=== PATIENT | male | born 1955 | race American Indian/Alaskan Native ===

== ENCOUNTER 2017-04-11 09:25 | Emergency (ER) | payer MEDICAID ==
--- NOTE | 2017-04-11 09:41 | Emergency Department Report ---
ED Medical Clearance HPI - General Chief complaint: Medical Clearance Stated complaint: HBP/DIABETIC Time Seen by Provider: 04/11/17 09:37 Source: patient Mode of arrival: Ambulatory Limitations: No Limitations - History of Present Illness -: Gradual Alledged Intoxication: No Compliant with Home Medications: No Traumatic Symptoms: denies traumatic injury Associated Symptoms: denies other symptoms, other (out of meds). denies: chest pain, shortness of breath, palpitations, diaphoresis, confusion, cough, fever/ chills, headaches, anorexia, malaise, nausea/vomiting, rash, seizure, syncope, weakness Treatments Prior to Arrival: none Home medications: Home Medications Medication Instructions Recorded Confirmed Last Taken Doxazosin 2 mg PO DAILY 06/23/15 02/29/16 Unknown Previous Rx's Medication Instructions Recorded Last Taken Type metFORMIN [Glucophage] 500 mg PO QDAY #31 tab 02/29/16 Unknown Rx traMADol [Ultram 50 MG tab] 50 mg PO Q6HR PRN #15 tablet 02/29/16 Unknown Rx Doxazosin [Cardura] 2 mg PO QDAY #30 tablet 04/11/17 Unknown Rx metFORMIN [Glucophage] 500 mg PO QDAY #30 tab 04/11/17 Unknown Rx Allergies/Adverse reactions: Allergies Allergy/AdvReac Type Severity Reaction Status Date / Time No Known Allergies Allergy Verified 02/29/16 11:11 ED Review of Systems ROS: Stated complaint: HBP/DIABETIC Other details as noted in HPI Comment: All other systems reviewed and negative Constitutional: no symptoms reported, see HPI Eyes: as per HPI ENT: as per HPI. denies: ear pain, throat pain Respiratory: no symptoms reported, see HPI. denies: cough, orthopnea, shortness of breath, SOB with exertion, SOB at rest, stridor, wheezing Cardiovascular: as per HPI. denies: chest pain, palpitations, dyspnea on exertion, orthopnea, edema, syncope, paroxysmal nocturnal dyspnea Endocrine: no symptoms reported, see HPI. denies: excessive sweating, flushing , intolerance to cold, intolerance to heat Gastrointestinal: as per HPI. denies: abdominal pain, nausea, vomiting Genitourinary: as per HPI. denies: urgency, dysuria Musculoskeletal: as per HPI. denies: back pain Skin: as per HPI. denies: rash, lesions Neurological: as per HPI. denies: headache, weakness, numbness, paresthesias, confusion, abnormal gait, vertigo Psychiatric: as per HPI, other (wie "on his case to get his meds." she checks his bs at home). denies: anxiety, depression Hematological/Lymphatic: as per HPI. denies: easy bleeding ED Past Medical Hx - Past Medical History Previous Medical History?: Yes Hx Hypertension: Yes Hx CVA: No Hx Heart Attack/AMI: No Hx Congestive Heart Failure: No Hx Diabetes: Yes Hx Deep Vein Thrombosis: No Hx Pulmonary Embolism: No Hx GERD: No Hx Liver Disease: No Hx Renal Disease: No Hx of Cancer: No Hx Sickle Cell Disease: No Hx Arthritis: No Hx Headaches / Migraines: No Hx Seizures: No Hx Kidney Stones: No Hx Psychiatric Treatment: No Hx Asthma: No (denies to provider) Hx COPD: No Hx Tuberculosis: No Hx Dementia: No Hx HIV: No - Surgical History Past Surgical History?: Yes Additional Surgical History: left knee surgery. cataract - Family History Family history: no significant - Social History Smoking Status: Current Every Day Smoker Substance Use Type: Alcohol, Prescribed - Medications Home Medications: Home Medications Medication Instructions Recorded Confirmed Last Taken Type Doxazosin 2 mg PO DAILY 06/23/15 02/29/16 Unknown History metFORMIN [Glucophage] 500 mg PO QDAY #31 tab 02/29/16 Unknown Rx traMADol [Ultram 50 MG tab] 50 mg PO Q6HR PRN #15 tablet 02/29/16 Unknown Rx Doxazosin [Cardura] 2 mg PO QDAY #30 tablet 04/11/17 Unknown Rx metFORMIN [Glucophage] 500 mg PO QDAY #30 tab 04/11/17 Unknown Rx ED Physical Exam - General Limitations: No Limitations General appearance: alert, in no apparent distress - Head Head exam: Present: atraumatic - Eye Eye exam: Present: normal appearance - ENT ENT exam: Present: normal exam, mucous membranes moist - Neck Neck exam: Present: normal inspection. Absent: tenderness, meningismus - Respiratory Respiratory exam: Present: normal lung sounds bilaterally. Absent: respiratory distress, wheezes, rales, rhonchi, stridor - Cardiovascular Cardiovascular Exam: Present: regular rate. Absent: normal rhythm, bradycardia , tachycardia, irregular rhythm - GI/Abdominal GI/Abdominal exam: Present: soft. Absent: distended, tenderness, guarding, rebound, rigid, normal bowel sounds, diminished bowel sounds - Rectal Rectal exam: Present: deferred - Back Exam Back exam: Present: normal inspection, full ROM. Absent: tenderness, CVA tenderness (R), CVA tenderness (L) - Neurological Exam Neurological exam: Present: alert, altered, oriented X3, CN II-XII intact, normal gait, reflexes normal. Absent: abnormal gait, motor sensory deficit - Psychiatric Psychiatric exam: Present: normal affect, normal mood, depressed. Absent: agitated - Skin Skin exam: Present: warm, dry, intact, normal color. Absent: rash ED Course Vital Signs 04/11/17 09:28 Temperature 97.8 F Pulse Rate 86 Respiratory 18 Rate Blood Pressure 154/100 O2 Sat by Pulse 99 Oximetry - Reevaluation(s) Reevaluation #1: 04/11/17 09:48 to er for med refill bp med and metformin no co see MDM section bp slightly elevated- ac neuro intact ambulatory and in no distress no cp or sob Reevaluation #2: 04/11/17 09:53 manual bp 143/80 ED Medical Decision Making - Medical Decision Making chart reviewed cr n 1 y ago off meds has pcp but forgets his name. going there to make appnt when he leaves here. no cp no sob. no neuro co. bs 135 ED Disposition Clinical Impression: Medication refill, Hypertension, Diabetes Disposition: DC-01 TO HOME OR SELFCARE Is pt being admited?: No Does the pt Need Aspirin: No Condition: Stable Instructions: How to Check Your Blood Sugar (ED), Diabetes Mellitus Type 2 in Adults (ED), Hypertension (ED) Additional Instructions: take your meds as RX see pcp for follow up visit I've given you another name today in the event you need it low salt diet diabetic diet follow your blood sugars Prescriptions: metFORMIN [Glucophage] 500 mg PO QDAY #30 tab Referrals: CALEB STUBBS MD, PHD [Staff Physician] - 3-5 Days Time of Disposition: 09:53
[2017-04-11 09:55] VITALS: BP 144/80
== END 2017-04-11 10:00 | disposition home or self-care (01) ==
LOC: ED 09:25
DX: Z76.0 Encounter for issue of repeat prescription (principal); I10 Essential (primary) hypertension; E11.9 Type 2 diabetes mellitus without complications
CPT/HCPCS: 82962; 99282

== ENCOUNTER 2017-10-05 07:44 | Emergency (ER) | payer MEDICAID ==
[2017-10-05 08:51] LABS: Basophils % (Auto) 0.5 % (0.0-1.8); Eosinophils % (Auto) 3.6 % (0.0-4.3); Hematocrit 36.1 % (35.5-45.6); Hemoglobin 12.1 gm/dl (11.8-15.2); Mean Corpuscular HGB Conc 34 % (32-34); Mean Corpuscular Hemoglobin 31 pg (28-32); Mean Corpuscular Volume 93 fl (84-94); Platelet Count 245 K/mm3 (140-440); Red Blood Count 3.86 M/mm3 (3.65-5.03); Red Cell Distribution Width 14.3 % (13.2-15.2); White Blood Count 7.6 K/mm3 (4.5-11.0)
[2017-10-05 09:03] LABS: Anion Gap 19 mmol/L; BUN/Creatinine Ratio 21; Blood Urea Nitrogen 17 mg/dL (9-20); Calcium 8.7 mg/dL (8.4-10.2); Carbon Dioxide 22 mmol/L (22-30); Chloride 99.2 mmol/L (98-107); Glucose 230 mg/dL (75-100); Sodium 136 mmol/L (137-145)
[2017-10-05 10:16] VITALS: BP 123/75
--- NOTE | 2017-10-05 12:08 | Emergency Department Report ---
ED Male HPI - General Chief complaint: Urogenital-Male Stated complaint: PRIVATE PART SWOLLEN Time Seen by Provider: 10/05/17 11:51 Source: patient Mode of arrival: Ambulatory Limitations: No Limitations - History of Present Illness Initial comments: This is a 62-year-old male who was previously unknown to this provider, patient presents to the ER with painless swelling of the foreskin since last night. He has no headache, neck pain, chest pain, abdominal pain, shortness of breath, testicular pain, and he also denies irritative/obstructive urinary symptoms. There is no trauma, and he reports no recent sexual contacts within the past month. MD Complaint: other -: Gradual, days(s) Location: penis Radiation: none Consistency: constant Improves with: other (the swelling decreases with manual pressure, and with proximally directed retraction) Worsens with: none swelling. denies: discharge, mass, rash, urinary retention, blood in urine, dysuria, fever, nausea/vomiting, incontinence - Related Data Sexually active: Yes (last month) Home Medications Medication Instructions Recorded Confirmed Last Taken Doxazosin 2 mg PO DAILY 06/23/15 02/29/16 Unknown Previous Rx's Medication Instructions Recorded Last Taken Type metFORMIN [Glucophage] 500 mg PO QDAY #31 tab 02/29/16 Unknown Rx traMADol [Ultram 50 MG tab] 50 mg PO Q6HR PRN #15 tablet 02/29/16 Unknown Rx Doxazosin [Cardura] 2 mg PO QDAY #30 tablet 04/11/17 Unknown Rx metFORMIN [Glucophage] 500 mg PO QDAY #30 tab 04/11/17 Unknown Rx Allergies Allergy/AdvReac Type Severity Reaction Status Date / Time No Known Allergies Allergy Verified 02/29/16 11:11 ED Review of Systems ROS: Stated complaint: PRIVATE PART SWOLLEN Other details as noted in HPI ED Past Medical Hx - Past Medical History Hx Hypertension: Yes Hx CVA: No Hx Heart Attack/AMI: No Hx Congestive Heart Failure: No Hx Diabetes: Yes Hx Deep Vein Thrombosis: No Hx Pulmonary Embolism: No Hx GERD: No Hx Liver Disease: No Hx Renal Disease: No Hx Sickle Cell Disease: No Hx Arthritis: No Hx Headaches / Migraines: No Hx Seizures: No Hx Kidney Stones: No Hx Psychiatric Treatment: No Hx Asthma: No (denies to provider) Hx COPD: No Hx Tuberculosis: No Hx Dementia: No Hx HIV: No - Surgical History Additional Surgical History: left knee surgery. cataract - Social History Smoking Status: Current Every Day Smoker Substance Use Type: None - Medications Home Medications: Home Medications Medication Instructions Recorded Confirmed Last Taken Type Doxazosin 2 mg PO DAILY 06/23/15 02/29/16 Unknown History metFORMIN [Glucophage] 500 mg PO QDAY #31 tab 02/29/16 Unknown Rx traMADol [Ultram 50 MG tab] 50 mg PO Q6HR PRN #15 tablet 02/29/16 Unknown Rx Doxazosin [Cardura] 2 mg PO QDAY #30 tablet 04/11/17 Unknown Rx metFORMIN [Glucophage] 500 mg PO QDAY #30 tab 04/11/17 Unknown Rx ED Physical Exam - General Limitations: No Limitations General appearance: alert, in no apparent distress - Head Head exam: Present: atraumatic, normocephalic - Eye Eye exam: Present: other (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 Absent: respiratory distress - Cardiovascular Cardiovascular Exam: Present: regular rate, normal rhythm, normal heart sounds. Absent: systolic murmur, diastolic murmur, rubs, gallop - GI/Abdominal GI/Abdominal exam: Present: soft, normal bowel sounds. Absent: distended, tenderness, guarding, rebound, rigid, pulsatile mass - Rectal Rectal exam: Present: deferred - exam: Present: other (there is no testicular tenderness. There is normal testicular lie bilaterally. There is normal cremasteric reflex bilaterally.). Absent: testicular tenderness, scrotal swelling, vertical testicular lie External exam: Present: other (the distal foreskin is noted to be swollen and edematous. It is easily retractable. There is no redness, pus, streaking, tenderness, crepitus, or discharge.) - Extremities Exam Extremities exam: Present: normal inspection, full ROM, normal capillary refill. Absent: pedal edema, joint swelling, calf tenderness - Back Exam Back exam: Present: normal inspection, full ROM. Absent: tenderness, CVA tenderness (R), paraspinal tenderness, vertebral tenderness - Neurological Exam Neurological exam: Present: alert, oriented X3, CN II-XII intact, normal gait, other (Extraocular movements intact. Tongue midline. No facial droop. Facial sensation intact to light touch in the V1, V2, V3 distribution bilaterally. 5 and 5 strength in 4 extremities.. Sensation is intact to light touch in 4 extremities.). Absent: motor sensory deficit - Psychiatric Psychiatric exam: Present: normal affect, normal mood - Skin Skin exam: Present: warm, dry, intact, normal color. Absent: rash ED Course Vital Signs 10/05/17 10/05/17 10/05/17 07:58 10:15 10:16 Temperature 97.9 F 98.4 F Pulse Rate 95 H 71 Respiratory 20 16 16 Rate Blood Pressure 166/76 Blood Pressure 123/75 [Left] O2 Sat by Pulse 97 94 94 Oximetry ED Medical Decision Making - Lab Data Result diagrams: 10/05/17 08:18 10/05/17 08:18 Vital Signs 10/05/17 10/05/17 10/05/17 07:58 10:15 10:16 Temperature 97.9 F 98.4 F Pulse Rate 95 H 71 Respiratory 20 16 16 Rate Blood Pressure 166/76 Blood Pressure 123/75 [Left] O2 Sat by Pulse 97 94 94 Oximetry Lab Results 10/05/17 10/05/17 10/05/17 Range/Units 08:00 08:18 08:18 WBC 7.6 (4.5-11.0) K/mm3 RBC 3.86 (3.65-5.03) M/mm3 Hgb 12.1 (11.8-15.2) gm/dl Hct 36.1 (35.5-45.6) % MCV 93 (84-94) fl MCH 31 (28-32) pg MCHC 34 (32-34) % RDW 14.3 (13.2-15.2) % Plt Count 245 (140-440) K/mm3 Lymph % (Auto) 33.0 (13.4-35.0) % [place] % (Auto) 4.7 (0.0-7.3) % Eos % (Auto) 3.6 (0.0-4.3) % Baso % (Auto) 0.5 (0.0-1.8) % Lymph # 2.5 (1.2-5.4) K/mm3 [place] # 0.4 (0.0-0.8) K/mm3 Eos # 0.3 (0.0-0.4) K/mm3 Baso # 0.0 (0.0-0.1) K/mm3 Seg Neutrophils % 58.2 (40.0-70.0) % Seg Neutrophils # 4.4 (1.8-7.7) K/mm3 Sodium 136 L (137-145) mmol/L Potassium 4.0 (3.6-5.0) mmol/L Chloride 99.2 (98-107) mmol/L Carbon Dioxide 22 (22-30) mmol/L Anion Gap 19 mmol/L BUN 17 (9-20) mg/dL Creatinine 0.8 (0.8-1.5) mg/dL Estimated GFR > 60 ml/min BUN/Creatinine Ratio 21 % Glucose 230 H (75-100) mg/dL POC Glucose 260 H (70-105) Calcium 8.7 (8.4-10.2) mg/dL Urine Color (Yellow) Urine Turbidity (Clear) Urine pH (5.0-7.0) Ur Specific [place] (1.003-1.030) Urine Protein (Negative) mg/dL Urine Glucose (UA) (Negative) mg/dL Urine Ketones (Negative) mg/dL Urine Blood (Negative) Urine Nitrite (Negative) Urine Bilirubin (Negative) Urine Urobilinogen (<2.0) mg/dL Ur Leukocyte Esterase (Negative) Urine WBC (Auto) (0.0-6.0) /HPF Urine RBC (Auto) (0.0-6.0) /HPF 10/05/17 Range/Units 12:19 WBC (4.5-11.0) K/mm3 RBC (3.65-5.03) M/mm3 Hgb (11.8-15.2) gm/dl Hct (35.5-45.6) % MCV (84-94) fl MCH (28-32) pg MCHC (32-34) % RDW (13.2-15.2) % Plt Count (140-440) K/mm3 Lymph % (Auto) (13.4-35.0) % [place] % (Auto) (0.0-7.3) % Eos % (Auto) (0.0-4.3) % Baso % (Auto) (0.0-1.8) % Lymph # (1.2-5.4) K/mm3 [place] # (0.0-0.8) K/mm3 Eos # (0.0-0.4) K/mm3 Baso # (0.0-0.1) K/mm3 Seg Neutrophils % (40.0-70.0) % Seg Neutrophils # (1.8-7.7) K/mm3 Sodium (137-145) mmol/L Potassium (3.6-5.0) mmol/L Chloride (98-107) mmol/L Carbon Dioxide (22-30) mmol/L Anion Gap mmol/L BUN (9-20) mg/dL Creatinine (0.8-1.5) mg/dL Estimated GFR ml/min BUN/Creatinine Ratio % Glucose (75-100) mg/dL POC Glucose (70-105) Calcium (8.4-10.2) mg/dL Urine Color Straw (Yellow) Urine Turbidity Clear (Clear) Urine pH 6.0 (5.0-7.0) Ur Specific [place] 1.011 (1.003-1.030) Urine Protein <15 mg/dl (Negative) mg/dL Urine Glucose (UA) Neg (Negative) mg/dL Urine Ketones Neg (Negative) mg/dL Urine Blood Neg (Negative) Urine Nitrite Neg (Negative) Urine Bilirubin Neg (Negative) Urine Urobilinogen < 2.0 (<2.0) mg/dL Ur Leukocyte Esterase Neg (Negative) Urine WBC (Auto) < 1.0 (0.0-6.0) /HPF Urine RBC (Auto) 0.0 (0.0-6.0) /HPF - Medical Decision Making Differential diagnosis, including not limited to: Foreskin swelling, balanitis, cellulitis, phimosis, paraphimosis Assessment and plan: 62-year-old male with painless swelling of the foreskin, easily retractable, no redness, pus, streaking, discharge or tenderness. Laboratory studies are unremarkable, the patient is able to urinate without difficulty. Given lack of redness, lack of tenderness, lack of discharge, balanitis, cellulitis very unlikely. Given that foreskin is easily retractable, and swelling decreases with manual pressure, phimosis, paraphimosis are also very unlikely. Based on the current history and physical examination, there does not appear to be an emergent condition at this time, the patient can follow up with outpatient urology. Critical care attestation.: If time is entered above; I have spent that time in minutes in the direct care of this critically ill patient, excluding procedure time. ED Disposition Clinical Impression: Foreskin swelling Disposition: DC-01 TO HOME OR SELFCARE Is pt being admited?: No Does the pt Need Aspirin: No Condition: Stable Additional Instructions: Continue current outpatient medications. Follow up with a urology specialist within the next [address] Jordan is a local urology specialist. Retracts the foreskin at least once every 6 hours, and make certain to wash the foreskin with gentle soap and water or saline water at least once a day. Return to the ER right away with inability to retract foreskin, and inability to urinate, pain , discharge. Return to the ER right away with fevers, chills, lethargy, irritability, projectile vomiting, change in mental status, confusion, inability to tolerate liquid feeds. Referrals: PRIMARY CAREMD [Primary Care Provider] - 3-5 Days GABRIELLE JORDAN MD [Staff Physician] - 3-5 Days
[2017-10-05 12:32] LABS: Bilirubin,Urine NEG (Negative); Blood,Urine NEG (Negative); Ketones,Urine NEG (Negative); Leukocyte Esterase,Urine NEG (Negative); Nitrite,Urine NEG (Negative); Protein,Urine <15 mg/dL mg/dL (Negative); Urobilinogen,Urine < 2.0 mg/dL (<2.0); WBC,Urine < 1.0 /HPF (0.0-6.0)
== END 2017-10-05 13:42 | disposition home or self-care (01) ==
LOC: ED 07:44
DX: N48.89 Other specified disorders of penis (principal); I10 Essential (primary) hypertension; E11.9 Type 2 diabetes mellitus without complications; F17.200 Nicotine dependence, unspecified, uncomplicated
CPT/HCPCS: 36415; 80048; 81001; 82962; 85025; 87086; 99283

== ENCOUNTER 2019-08-06 07:19 | Outpatient (CLI) | payer MEDICAID ==
--- NOTE | 2019-08-06 08:59 | Cat Scan Report ---
CT LUMBAR SPINE WITHOUT CONTRAST INDICATION: M54.5 LOWER BACK PAIN. TECHNIQUE: Axial CT images of the spine were obtained. Sagittal and coronal reformatted images were produced. Al l CT scans at this location are performed using CT dose reduction for ALARA by means of automated exp osure control. COMPARISON: None available. FINDINGS: ACUTE FRACTURE(S) OR SUBLUXATION: None. SPINAL DEGENERATIVE CHANGES: There is moderate degenerative disc disease at L4-L5 with reactive endpl ate sclerosis and endplate osteophyte formation as well as vacuum disc phenomenon, greater on the rig ht side of the vertebral endplates. There is also an apparent broad-based disc protrusion causing mil d canal stenosis at that level. There is also a broad-based disc protrusion at L3-L4 resulting in mild canal stenosis. There is no ad ditional significant disc height loss. PARASPINAL SOFT TISSUES: No soft tissue swelling or other acute abnormalities. ADDITIONAL FINDINGS: No significant additional findings. IMPRESSION: 1. No acute fracture or subluxation in the spine in neutral position. 2. Degenerative disc disease at L4-L5 as described. 3. Broad-based disc protrusions at L3-4 and L4-5 resulting in at least mild central spinal canal sten osis. Signer Name: Noe Barillas MD Signed: 08/06/2019 8:55 AM Workstation Name: [id number]
== END 2019-08-06 07:20 | disposition home or self-care (01) ==
LOC: CT 07:19
PROVIDERS: ATTEND Internal Medicine
DX: M51.36 Other intervertebral disc degeneration, lumbar region (principal); M25.78 Osteophyte, vertebrae; M48.061 Spinal stenosis, lumbar region without neurogenic claudication; I10 Essential (primary) hypertension; E11.9 Type 2 diabetes mellitus without complications; F17.200 Nicotine dependence, unspecified, uncomplicated
CPT/HCPCS: 72131; 82962